=== PATIENT | female | born 1955 | race Caucasian/White ===

== ENCOUNTER → 2017-05-22 | Outpatient (CLI) | payer OTHER ==
[~2017-05-22] MED LIST: CYMBALTA PO; MAXZIDE-25 MG1 UDTAB PO; NEURONTIN PO; OXYCONTIN PO; PAXIL PO; PREMPRO 0.3 MG/1 TAB PO; [UNRECOGNIZED DRUG - OTHER] PO
--- NOTE | ~2017-05-22 | MY29 ---
[facility] A Service of [facility] [place] & [facility] [place] RADIOLOGY TEXT RESULTS PATIENT: SINCERE BENNETT LOCATION: [facility] : 59 UNIT #: [id number] AGE: [address]: Nidia Dyson MD SEX: F ORDER DR: [id number] [facility] [address] [place], [place] [address] [id number] O MR#: [id number] Acc #: [id number] NAME: SINCERE BENNETT : 1955 SEX: F STUDY DATE/TIME: 05/22/2017 13:34 UNIT: [facility] ROOM: STUDY DESCRIPTION: MY CAPRICE SCREENING W/ CAD BILAT Attending Physician: Nidia Dyson M.D. Ordering Physician: Nidia Dyson M.D. Primary Care Physician: Nidia Dyson M.D. MEDICAL IMAGING REPORT This report is preliminary unless electronic signature is present EXAM Digital screening mammogram 05/22/2017 [facility] HISTORY 62-year-old woman no risk elevation. Annual screen. COMPARISON Mammograms , , , 2010, 02/25/2013 and 12/21/2015 FINDINGS Digital imaging of each breast was completed utilizing screening protocol. Review includes FDA-approved CAD device. The breast parenchyma is partially fatty replaced but mildly dominant in the left breast. In addition there is an approximate 9 mm nodule visualized in the outer hemisphere left breast posterior third very close to the chest wall. This is not identified on the MLO projection and is not identified on prior mammograms. It has benign characteristics but warrants additional imaging. This would include an exaggerated craniocaudal view and a true lateral view with spot compression. Targeted ultrasound will be performed if indicated at the time. The right breast is negative and stable. IMPRESSION Incomplete mammographic evaluation. Additional left breast imaging is recommended. See complete report with recommendations. Patient's over the age of 40 are entered into a reminder system with target due date for the next mammogram. A result letter will be sent to the patient. BIRADS: 0 Needs additional left breast imaging evaluate and/or prior mammograms for comparison. [facility] A Service of [facility] & [facility] [place] RADIOLOGY TEXT RESULTS PATIENT: SINCERE BENNETT LOCATION: [facility] : 59 UNIT #: [id number] AGE: [address]: Nidia Dyson MD SEX: F ORDER DR: Dictated by... Olvin Still M.D. THIS IS AN ELECTRONICALLY VERIFIED REPORT Olvin Still M.D. at 05/23/2017 8:13 AM JBB/becca TD: 05/22/2017 17:36 JOB #: [id number] MEDICAL IMAGING REPORT Page 1 of 1 COPY
== END | disposition home or self-care (01) ==
LOC: CWCC 13:12
DX: Z12.31 Encounter for screening mammogram for malignant neoplasm of breast (principal); R92.8 Other abnormal and inconclusive findings on diagnostic imaging of breast
CPT/HCPCS: G0202